=== PATIENT | male | born 1970 | race Caucasian/White ===

== ENCOUNTER 2023-07-03 19:38 | Emergency (ER) | payer MEDICARE, SELFPAY ==
--- NOTE | ~2023-07-03 | XR_ITS ---
EXAMINATION: XR chest 2V DATE: 07/03/2023 20:07 INDICATION: Shortness of breath and chest pain and possible allergic reaction. TECHNIQUE: PA and lateral views of the chest were obtained. COMPARISON: None FINDINGS: Right middle lobe opacity with band like appearance on the lateral projection favoring atelectasis/sc arring over pneumonia. Remainder of the lungs are clear. No pulmonary edema, pleural effusion or pneu mothorax. Heart size is normal. Partially visualized lesion in the left upper quadrant with periphera l high attenuation rim which measures 8.8 cm AP and 8.5 cm medial to lateral. IMPRESSION: 1. Right middle lobe opacities with appearance favoring atelectasis over pneumonia. 2. Indeterminate 8.8 x 8.5 cm lesion with thin peripheral high attenuation rim in the left upper quad rant. Considerations would include high attenuation material along the wall of the stomach or rim cat cified cystic splenic lesion related to old infection or trauma. Reviewed, dictated and finalized at location [facility]. [facility] [employer] IMPRESSION: 1. Right middle lobe opacities with appearance favoring atelectasis over pneumo rafael. 2. Indeterminate 8.8 x 8.5 cm lesion with thin peripheral high attenuation rim in the left upper quadrant. Considerations would include high attenuation mater ial along the wall of the stomach or rim calcified cystic splenic lesion relate d to old infection or trauma.
--- NOTE | 2023-07-03 19:47 | ECG_ITS ---
Measurements Intervals [place] Rate: 56 P: 72 CA: 146 QRS: 26 QRSD: 94 T: 59 QT: 398 QTc: 385 Interpretive Statements SINUS BRADYCARDIA DELAYED PRECORDIAL R/S TRANSITION BORDERLINE ECG NO PREVIOUS ECG AVAILABLE FOR COMPARISON Electronically Signed On 07-03-2023 21:15:50 IMAGING NURSE by Chung Louis D.O.
[2023-07-03 19:49] VITALS: BP 114/80; PULSE 65; RESP 17; TEMP 36.6; O2SAT 100
[2023-07-03 20:01] VITALS: BP 113/67; PULSE 51; RESP 15; O2SAT 100
[2023-07-03] MEDS: diphenhydrAMINE HCl INJ 50 MG/ML VIAL 25 MG IV PUSH (20:40)
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
[2023-07-03] MEDS: FAMOTIDINE 20 MG TABLET PO (21:32)
[2023-07-03] MEDS: predniSONE 20 MG TABLET 40 MG PO (21:32)
[2023-07-03 21:33] VITALS: BP 110/64; PULSE 51; RESP 12; TEMP 37.2; O2SAT 99
== END 2023-07-03 21:49 | disposition home or self-care (01) ==
PROVIDERS: Emergency Provider Emergency Medicine
DX: T78.40XA Allergy, unspecified, initial encounter (principal); I10 Essential (primary) hypertension; E03.9 Hypothyroidism, unspecified; E78.5 Hyperlipidemia, unspecified; X58.XXXA Exposure to other specified factors, initial encounter
CPT/HCPCS: 71046; 93005; 96374; 99284; A9270; J1200; J7512